=== PATIENT | male | born 1960 | race Caucasian/White ===

== ENCOUNTER → 2016-12-15 | Outpatient (CLI) | payer OTHER ==
--- NOTE | 2016-12-15 12:57 | ECHOF ---
Referral Reason:R07.9 Chest pain MEASUREMENTS -------- HEIGHT: 182.9 cm WEIGHT: 95.3 kg BP: 152/84 RVIDd: 3.2 cm (< 3.3) IVSd: 1.2 cm (0.6 - 1.1) LVIDd: 3.5 cm (3.9 - 5.3) LVPWd: 1.3 cm (0.6 - 1.1) IVSs: 1.6 cm LVIDs: 2.6 cm LVPWs: 1.9 cm LA Diam: 2.6 cm (2.7 - 3.8) LAESV Index (A-L): 26.94 ml/m Ao Diam: 2.7 cm (2.0 - 3.7) AV Cusp: 2.0 cm (1.5 - 2.6) LA Diam: 3.1 cm (2.7 - 3.8) MV EXCURSION: 20.477 mm (> 18.000) MV EF SLOPE: 74 mm/s (70 - 150) EPSS: 0.3 cm MV E Lanre: 0.58 m/s MV DecT: 287 ms MV A Lanre: 0.51 m/s MV E/A Ratio: 1.14 AV maxP.82 mmHg AV meanP.00 mmHg RAP: 5.00 mmHg RVSP: 22.76 mmHg FINDINGS -------- Sinus rhythm. This was a technically good study. The left ventricular size is normal. There is borderline concentric left ventricular hypertrophy. Overall left ventricular systolic function is normal with, an EF between 55 - 60 %. The right ventricle is normal in size. Normal LA size by volume 22+/-6 ml/m2. The right atrium is normal in size. There is moderate aortic valve sclerosis. There is mild aortic stenosis present. Peak/mean gradient across the Aortic Valve is 19.82mmHg / 11.00mmHg. AOV is possible Bicuspid. Mild mitral annular calcification present. Mild mitral regurgitation is present. Trace tricuspid regurgitation present. Right ventricular systolic pressure is normal at < 35 mmHg. There is no pulmonic regurgitation present. The aortic root size is normal. Normal inferior vena cava with normal inspiratory collapse consistent with estimated right atrial pressure of 5 mmHg. There is no pericardial effusion. CONCLUSIONS -------- 1. Sinus rhythm. 2. Right ventricular systolic pressure is normal at < 35 mmHg. 3. There is no pulmonic regurgitation present. 4. The aortic root size is normal. 5. Normal inferior vena cava with normal inspiratory collapse consistent with estimated right atrial pressure of 5 mmHg. 6. There is no pericardial effusion. 7. This was a technically good study. 8. There is borderline concentric left ventricular hypertrophy. 9. Normal LA size by volume 22+/-6 ml/m2. 10. Peak/mean gradient across the Aortic Valve is 19.82mmHg / 11.00mmHg. 11. AOV is possible Bicuspid. 12. Mild mitral annular calcification present. 13. Mild mitral regurgitation is present. 14. Trace tricuspid regurgitation present. STICKER OPERATOR: Linsey Echavarria RDCS
== END | disposition home or self-care (01) ==
LOC: RADECHMAIN 11:17
PROVIDERS: ATTEND Pediatrics
DX: I34.0 Nonrheumatic mitral (valve) insufficiency (principal); I07.1 Rheumatic tricuspid insufficiency; I05.8 Other rheumatic mitral valve diseases
CPT/HCPCS: 93306

== ENCOUNTER → 2017-04-03 | Outpatient (CLI) | payer OTHER ==
--- NOTE | 2017-04-03 15:52 | XR ---
EXAMINATION TYPE: XR foot complete LT DATE OF EXAM: 04/03/2017 COMPARISON: NONE HISTORY: 57 year-old male left foot crushing injury to first and second toes TECHNIQUE: 3 views FINDINGS: Incidental bipartite tibial sesamoid. Mild to moderate degenerative change at the first MTP joint. No acute fracture, subluxation, or dislocation is identified. Tiny plantar calcaneal spur. IMPRESSION: No acute osseous abnormality seen.
== END | disposition home or self-care (01) ==
LOC: RADXRMAIN 15:21
PROVIDERS: ATTEND Emergency Medicine
DX: S97.82XA Crushing injury of left foot, initial encounter (principal)

== ENCOUNTER → 2017-11-27 | Outpatient (CLI) | payer OTHER ==
--- NOTE | 2017-11-27 15:53 | US ---
EXAMINATION TYPE: US abdomen complete DATE OF EXAM: 11/27/2017 COMPARISON: NONE CLINICAL HISTORY: 57-year-old male R10.9 ABD PAIN. LEFT flank pain and swelling, palpable areas Technique: Multiple sonographic images of the abdomen are obtained. FINDINGS: Lead Software Test Engineer notes: scanned left flank at palpable site- there is a small 7 x 3 x 7 mm oval heterogene ous area that appears to be along the abdominal wall musculature/fascia deep to the subcutaneous fat. Liver Length: 17.4 cm Gallbladder Wall: 0.2 cm CBD: Suboptimal visualization. Spleen: 12.9 cm Right Kidney: 9.2 x 5.1 x 4.7 cm Left Kidney: 11.9 x 5.7 x 7.0 cm Pancreas: No gross abnormality. Liver: Borderline enlarged. Overall homogeneous echotexture. No focal lesion. Gallbladder: wnl Evidence for sonographic Lu's sign: no CBD: Suboptimal visualization. No dilated duct was visualized. Spleen: wnl Right Kidney: Lead Software Test Engineer reports a low-lying ectopic right kidney. No hydronephrosis. Left Kidney: No hydronephrosis. Upper IVC: wnl Abd Aorta: wnl IMPRESSION: 1. Borderline hepatomegaly. 2. Suboptimal visualization of the bile duct. 3. Incidental low-lying, ectopic right kidney. 4. Targeted scanning along the left flank at the patient's palpable site shows a 10 mm nodule along t he abdominal wall musculature/fascia. The etiology is uncertain. Consider short interval follow-up in 3 months to reassess. Surgical evaluation can be considered if any growth is noted.
== END | disposition home or self-care (01) ==
LOC: RADUSWWP 14:41
PROVIDERS: ATTEND Pediatrics
DX: R16.0 Hepatomegaly, not elsewhere classified (principal)
CPT/HCPCS: 76700

== ENCOUNTER 2019-09-01 10:19 | Day surgery (SDC) | payer OTHER ==
[2019-08-29 09:09] VITALS: BMI 28.7
[~2019-09-01 10:19] MED LIST: LACTATED RINGERS 1,000 ML IV SCH; LIDOCAINE 1% 20 ML VIAL (10MG/ML) FOR IV START INTRADERMA PRN
[2019-09-01] MEDS ORDERED: LACTATED RINGERS 1,000 ML IV ONE (11:41)
[2019-09-01] MEDS ORDERED: PROPOFOL 10 MG/ML 20 ML VIAL IV ONE (12:14)
--- NOTE | 2019-09-01 12:53 | P.PCN ---
Date of Procedure: 09/01/19 Description of Procedure: BRIEF HISTORY: Patient is a 59-year-old pleasant male scheduled for an elective colonoscopy as a part of screening for malignant neoplasm of colon. No family history of colon cancer. No change in bowel habits. Last colonoscopy 11 years ago and normal per his recollection. PROCEDURE PERFORMED: Colonoscopy with polypectomy. PREOPERATIVE DIAGNOSIS: Screening for malignant neoplasm of the colon, last colonoscopy 11 years ago. ESTIMATED BLOOD LOSS: Minimal. IV sedation per Anesthesia. PROCEDURE: After informed consent was obtained, the patient, was brought into the endoscopy unit. IV sedation was administered by Anesthesia under continuous monitoring. Digital rectal examination was normal. Initially the Olympus CF-190 flexible video colonoscope was then inserted in the rectum, gradually advanced into the cecum without any difficulty. Careful examination was performed as the scope was gradually being withdrawn. Ileocecal valve and the appendiceal orifice were visualized and appeared normal. The terminal ileum was intubated and appeared normal. Prep was excellent. Mucosa of the cecum, ascending colon, transverse colon, descending colon, sigmoid colon, and rectum appeared normal. Diminutive 2 mm transverse colon polyp removed with cold forcep polypectomy. Diminutive 2 mm sigmoid polyp removed with cold forcep polypectomy. Retroflexion was performed in the rectum and no lesions were seen. The patient tolerated the procedure well. IMPRESSION: 2 diminutive polyps removed with cold forceps from the transverse colon and sigmoid colon. Otherwise, normal-appearing colon from rectum to cecum. RECOMMENDATIONS: Findings of this examination were discussed with the patient and his family. Okay to resume diet. Okay to resume medications. Anticipate repeat colonoscopy in 5 years for colon polyps, pending pathology from polypectomy.
[2019-09-01 13:08] VITALS: BP 148/80; PULSE 52; RESP 17
== END 2019-09-01 13:30 | disposition home or self-care (01) ==
LOC: ORWHC2ENDO 10:19
PROVIDERS: ATTEND Internal Medicine
DX: Z12.11 Encounter for screening for malignant neoplasm of colon (principal); D12.5 Benign neoplasm of sigmoid colon; K63.5 Polyp of colon; I10 Essential (primary) hypertension; G47.33 Obstructive sleep apnea (adult) (pediatric); E78.5 Hyperlipidemia, unspecified; F39 Unspecified mood [affective] disorder; Z87.891 Personal history of nicotine dependence; Z90.49 Acquired absence of other specified parts of digestive tract; Z79.82 Long term (current) use of aspirin; Z79.899 Other long term (current) drug therapy
CPT/HCPCS: 88305; 45380; J2704

== ENCOUNTER → 2020-04-12 | Outpatient (CLI) | payer OTHER ==
--- NOTE | 2020-04-12 16:00 | XR ---
EXAMINATION TYPE: XR forearm LT DATE OF EXAM: 04/12/2020 CLINICAL HISTORY: Stitches to mid forearm from gear grinder equipment injury. Concern for foreign body. TECHNIQUE: Two views of the left forearm are obtained. COMPARISON: None. FINDINGS: There is no acute fracture or dislocation seen in the left radius or ulna. There is subcho ndral cystic change of the ulnocarpal joints. The left elbow joint appears maintained, with olecranon spurring. Normal osseous mineralization. There is superficial soft tissue irregularity of the mid vo lar forearm. No unexpected radiopaque foreign body. IMPRESSION: Superficial soft tissue irregularity of the mid volar forearm. No radiopaque foreign body.
== END | disposition home or self-care (01) ==
LOC: RADXRMAIN 15:31
PROVIDERS: ATTEND Emergency Medicine
DX: R93.6 Abnormal findings on diagnostic imaging of limbs (principal)

== ENCOUNTER → 2022-05-25 | Outpatient (CLI) | payer OTHER ==
--- NOTE | 2022-05-25 09:52 | CT ---
EXAMINATION TYPE: CT brain wo/w con CT DLP: 1990 mGycm, Automated exposure control for dose reduction was used. DATE OF EXAM: 05/25/2022 9:42 AM COMPARISON: CT brain 12/22/2013. CLINICAL INDICATION:Male, 62 years old with history of R51.9 HEADACHE, UNSPECIFIED; PHH, headaches an d dizziness TECHNIQUE: Axial CT images of the brain were obtained followed by contrast enhanced axial images of t he brain with 70 cc of ISO-view 300 IV contrast. Coronal and sagittal reformats reviewed. One or more CT dose reduction strategies were utilized during this examination. FINDINGS: Extra-axial spaces: No abnormal extra-axial fluid collections. Ventricular system: Within normal limits Cerebral parenchyma: No acute intraparenchymal hemorrhage or mass effect. The okeefe-white junction is well differentiated. No abnormal enhancement is seen after the administration of intravenous contras t. Cerebellum: Unremarkable. Mass effect: No evidence of midline shift. Intracranial vasculature: unremarkable Soft tissues: Normal. Calvarium/osseous structures: No depressed skull fracture. Paranasal sinuses and mastoid air cells: The mastoid air cells are clear. Minimal scattered mucosal t hickening of the paranasal sinuses. Visualized orbits: Orbital contents are intact. IMPRESSION: Unremarkable postcontrast CT brain. No significant change from prior exam.
== END | disposition home or self-care (01) ==
LOC: RADCTMAIN 08:58
PROVIDERS: ATTEND Pediatrics
DX: R51.9 Headache, unspecified (principal)
CPT/HCPCS: 70470; Q9967

== ENCOUNTER → 2022-12-19 | Outpatient (CLI) | payer OTHER ==
--- NOTE | 2022-12-19 09:24 | CT ---
EXAMINATION TYPE: CT chest wo con DATE OF EXAM: 12/19/2022 COMPARISON: None HISTORY: pre op for heart valve CT DLP: [address] of the chest was performed with lung and mediastinal window settings submitted. The la ck of contrast limits evaluation of the vascular, mediastinal and parenchymal structures including th e upper abdomen. LUNGS: The lungs are clear and free of infiltrate. No atelectasis. No pulmonary nodule or mass is de tected. No pleural effusion. No CT evidence of interstitial lung disease. MEDIASTINUM/YAMEL: Thoracic aorta is of normal caliber with limited evaluation given lack of contrast . Ascending thoracic aorta measures 3.5 cm in AP dimension with the aortic root measuring 3.7 cm. Th e heart is not enlarged. Aortic valvular calcifications noted. No evidence for mediastinal mass. No lymph nodes greater than 1cm. UPPER ABDOMEN: No significant abnormality is seen. OTHER: No significant other abnormality. IMPRESSION: 1. Aortic valvular calcifications.
== END | disposition home or self-care (01) ==
LOC: RADCTMAIN 07:56
DX: Z01.818 Encounter for other preprocedural examination (principal); I35.0 Nonrheumatic aortic (valve) stenosis
CPT/HCPCS: 71250

== ENCOUNTER 2022-12-22 09:09 | Day surgery (SDC) | payer OTHER ==
[2022-12-22 09:45] VITALS: TEMP 97.7
[2022-12-22] MEDS ORDERED: fentaNYL (PF) 50 MCG/ML 2 ML AMP ONE (11:09)
[2022-12-22] MEDS ORDERED: BENZOCAINE SPRAY 1 CAN TOPICAL ONE (11:24)
[2022-12-22] MEDS ORDERED: fentaNYL (PF) 50 MCG/ML 2 ML AMP IV ONE (11:26)
[2022-12-22] MEDS ORDERED: MIDAZOLAM 2 MG/2 ML VIAL IV ONE ×3 (11:26→11:28)
[2022-12-22] MEDS ORDERED: SODIUM CHLORIDE 0.9% 500 ML 500 ML IV ONE (11:30)
[2022-12-22 12:41] VITALS: RESP 16
[2022-12-22 12:42] VITALS: BP 104/73; PULSE 68
--- NOTE | 2022-12-22 18:12 | P.TEE ---
Description of Procedure(s): Procedure performed: Transesophageal Echocardiogram with color flow doppler, pulsed wave doppler and continuous wave doppler, moderate conscious sedation Moderate conscious sedation: Moderate conscious sedation was supplied with direct supervision of myself using Versed and Fentanyl. Complications: none Indications: Severe aortic stenosis PROCEDURE: After the risks, benefits and alternatives of the above mentioned procedure was explained in detail with the patient, informed consent was obtained. Patient was brought to the lab in a fasting state. Patient was given IV Versed and Fentanyl for sedation. The throat was sprayed with Hurricane to anesthetize the throat. A lubricated Omni probe was then introduced into the esophagus and stomach and multiple views were obtained. 2D echo with color flow doppler, pulsed wave doppler and continuous wave doppler was utilized. Agitated saline bubbles were injected to assess for any intra-atrial shunt. The probe was then removed. Patient tolerated the procedure well. Patient was transferred to the post procedure area in stable and satisfactory condition. FINDINGS: 1. The aortic valve is bicuspid with fusion of the left and right coronary cusps with severe aortic stenosis and aortic valve area 0.8 cm by planimetry. 2. The mitral valve appears be normal with mild mitral regurgitation. 3. Tricuspid valve and trace tricuspid regurgitation. 4. The interatrial septum is intact. No evidence of PFO. 5. Left atrial appendage is free of clot. 6. Left ventricular ejection fraction 55%
== END 2022-12-22 13:14 | disposition home or self-care (01) ==
LOC: CATHCVL 09:09
PROVIDERS: ATTEND Internal Medicine
DX: I08.3 Combined rheumatic disorders of mitral, aortic and tricuspid valves (principal); I10 Essential (primary) hypertension; E78.5 Hyperlipidemia, unspecified; Z87.891 Personal history of nicotine dependence; Z82.49 Family history of ischemic heart disease and other diseases of the circulatory system; I49.3 Ventricular premature depolarization; F41.9 Anxiety disorder, unspecified; Z98.890 Other specified postprocedural states; Z79.82 Long term (current) use of aspirin; Z79.899 Other long term (current) drug therapy
CPT/HCPCS: 93312; 93320; 93325; 99152; J2250; J3010

== ENCOUNTER → 2023-01-03 | Outpatient (CLI) | payer OTHER ==
[2023-01-03 15:47] LABS: Basophils # (A) 0.03 X 10*3/uL (0.00-0.10); Basophils % (A) 0.8 %; Eosinophils # (A) 0.41 X 10*3/uL (0.04-0.35); Eosinophils % (A) 10.4 %; HGB 15.4 g/dL (13.0-17.0); Immature Grans, Automated 0.5 %; Lymphocytes % (A) 22.9 %; MCH 27.7 pg (27.0-32.0); MCHC 33.5 g/dL (32.0-37.0); MCV 82.7 fL (80.0-97.0); Mean Platelet Volume 10.9 fL (9.5-12.2); Monocytes # (A) 0.29 X 10*3/uL (0.20-1.00); Monocytes % (A) 7.4 %; NRBC Per 100 WBC 0 /100 WBCS (0.0-0.0); Neutrophils # (A) 2.28 X 10*3/uL (1.80-7.70); Platelet Count 147 X 10*3/uL (140-440); RBC 5.56 X 10*6/uL (4.40-5.60); RDW 13.3 % (11.5-14.5); WBC 3.93 X 10*3/uL (4.50-10.00)
[2023-01-03 15:51] LABS: Appearance,Urine Clear (Clear); Bilirubin,Urine Negative (Negative); Blood,Urine Negative (Negative); Color,Urine Yellow (Yellow); Ketones,Urine Negative (Negative); Nitrite,Urine Negative (Negative); Specific Gravity,Urine 1.022 (1.001-1.030); Urobilinogen,Urine 0.2 (0.2,1.0)
[2023-01-03 15:55] LABS: African American GFR (CKD) 88.6 (60.0-200.0); Albumin 4.8 g/dL (3.8-4.9); Albumin/Globulin Ratio 2.13 (1.60-3.17); Anion Gap 8.7 mmol/L (10.00-18.00); BUN/Creat Ratio 13.11 Ratio (12.00-20.00); Blood Urea Nitrogen 13.5 mg/dL (9.0-27.0); Carbon Dioxide 30.8 mmol/L (20.0-27.5); Globulin 2.2 g/dL (1.6-3.3); Non-African American GFR(CKD) 76.4 (60.0-200.0); Total Bilirubin 0.8 mg/dL (0.30-1.20)
[2023-01-03 16:09] LABS: INR 0.94 (0.90-1.11); Prothrombin Time 10.6 sec (9.9-11.9)
== END | disposition home or self-care (01) ==
LOC: LABWHC1 11:14
PROVIDERS: ATTEND Thoracic Surgery (Cardiothoracic Vascular Surgery)
DX: I35.0 Nonrheumatic aortic (valve) stenosis (principal)
CPT/HCPCS: 36415; 80053; 81003; 83036; 85025; 85610

== ENCOUNTER → 2023-02-20 | Outpatient (CLI) | payer OTHER ==
--- NOTE | 2023-02-20 08:49 | CT ---
EXAMINATION TYPE: CT brain wo con DATE OF EXAM: 02/20/2023 COMPARISON: 05/25/2022 HISTORY: Headache CT DLP: 1061.[address] of the brain was performed. The ventricles, basal cisterns and sulci overlying the cerebral convexities demonstrate mild enlargem ent. There is no evidence for intracranial hemorrhage or sulcal effacement. There is decreased attenuation about the periventricular white matter and deep white matter of both c erebral hemispheres, compatible with chronic small vessel ischemia. Differential diagnosis does inclu de demyelination. No mass effects are seen.No midline shift. Osseous calvarium is intact. If symptoms persist consider MRI. IMPRESSION: 1. Age related atrophic and chronic small vessel ischemic change without acute intracranial process s een at this time.
== END | disposition home or self-care (01) ==
LOC: RADCTMAIN 07:57
PROVIDERS: ATTEND Family Medicine
DX: G44.309 Post-traumatic headache, unspecified, not intractable (principal); G31.1 Senile degeneration of brain, not elsewhere classified; I67.82 Cerebral ischemia
CPT/HCPCS: 70450

== ENCOUNTER → 2023-07-02 | Outpatient (CLI) | payer MEDICARE ==
--- NOTE | 2023-07-02 11:16 | CT ---
EXAMINATION TYPE: CT sinus wo con CT DLP: 514.5 mGycm, Automated exposure control for dose reduction was used. DATE OF EXAM: 07/02/2023 11:08 AM COMPARISON: CT brain 02/20/2023. CLINICAL INDICATION:Male, 63 years old with history of J30.1 ALLERGIC RHINITIS; PHH, ALLERGIC RHINITI S CONTRAST: None. TECHNIQUE: Multiple thin axial images were obtained through the paranasal sinuses without the use of IV contrast. Additional coronal and sagittal reformatted images were submitted for evaluation. FINDINGS: Dental amalgam increased streak artifact which limits evaluation. Frontal sinuses: Normally developed. Minimal mucosal thickening of the right maxillary sinus. Frontal Recess: Clear Maxillary Sinuses: Normally developed. Likely 7 mm mucous retention cyst within the anterior left max illary sinus. Minimal mucosal thickening identified. Likely 7 mm mucous retention cyst within the inf erior right maxillary sinus. Maxillary Infundibula([facility]): Left-sided clear. Right side is opacified. Ethmoid sinuses: Normally developed. Mild mucosal thickening of the bilateral ethmoid sinuses. Ethmoi robles notch: Protected and abutting the lateral lamina. Sphenoid sinuses: Normally developed. Likely 6 mm mucous retention cyst within the right sphenoid sin us. Left sphenoid sinus is clear. There is sellar sphenoid sinus pneumatization without evidence of d ehiscence. No dehiscence of carotid canal. No evidence of optic nerve dehiscence within the sphenoid sinus. Sphenoethmoidal recesses: Clear. Nasal septum: Left nasal septal spur. Nasal Turbinates: A ying bullosa defect is seen involving the right middle turbinate. Mastoid air cells & middle ears: The air cells are clear. The middle ears are grossly unremarkable. Modified Soft tissues & Brain: Partially seen without gross abnormality. Globes are intact. Other: Cribriform plate demonstrates symmetric Keros classification type 2 cribriform plate. No evidence of bony dehiscence of skull base. Lamina papyracea is intact without evidence of remote orbital fracture or orbital prolapse into the e thmoid sinus. Pneumatization of the melyssa arie. IMPRESSION: 1. Mild paranasal sinus mucosal disease with likely subcentimeter mucosal retention cysts within the bilateral maxillary sinuses and right sphenoid sinus. 2. The frontonasal and sphenoethmoidal recesses are clear. The left ostiomeatal complex is clear. Opa cification of the right ostiomeatal complex.
== END | disposition home or self-care (01) ==
LOC: RADCTMAIN 10:30
PROVIDERS: ATTEND Otolaryngology
DX: J30.1 Allergic rhinitis due to pollen (principal); J34.89 Other specified disorders of nose and nasal sinuses
CPT/HCPCS: 70486